=== PATIENT | male | born 1995 | race Caucasian/White ===

== ENCOUNTER 2017-02-03 17:23 | Emergency (ER) | payer BC, OTHER ==
--- NOTE | 2017-02-03 17:26 | UC ---
Eye Complaint HPI - HPI Summary HPI Summary: 21 year old male presents with left eye pain. - History of Current Complaint Stated Complaint: LEFT EYE COMPLAINT Time Seen by Provider: 02/03/17 17:25 - Allergies/Home Medications Allergies/Adverse Reactions: Allergies Allergy/AdvReac Type Severity Reaction Status Date / Time Cefaclor [From Ceclor] Allergy Hives Verified 02/03/17 17:32 Cefuroxime [From Ceftin] Allergy Hives Verified 02/03/17 17:32 bee stings Allergy Swelling Uncoded 02/03/17 17:32 environmental allergy Allergy Congestion Uncoded 02/03/17 17:32 PMH/Surg Hx/FS Hx/Imm Hx - Surgical History Surgical History: Yes Surgery Procedure, Year, and Place: tonsilectomy as child - Social History Substance Use Type: None - Immunization History Most Recent Tetanus Shot: Unknown Review of Systems Constitutional: Negative Skin: Negative Eyes: Eye Redness, Photophobia ENT: Negative Respiratory: Negative Cardiovascular: Negative Gastrointestinal: Negative Genitourinary: Negative Motor: Negative Neurovascular: Negative Musculoskeletal: Negative Neurological: Negative Psychological: Negative All Other Systems Reviewed And Are Negative: Yes Physical Exam Triage Information Reviewed: Yes Eyes: Positive: Conjunctiva Inflamed, Other: - foreign body (dirt) ENT Exam: Normal Dental Exam: Normal Neck exam: Normal Neck: Positive: 1 Respiratory Exam: Normal Cardiovascular Exam: Normal Abdominal Exam: Normal Musculoskeletal Exam: Normal Neurological Exam: Normal Psychological Exam: Normal Skin Exam: Normal Eye Complaint Course/Dx - Differential Dx/Diagnosis Provider Diagnoses: left eye foreign body. conjunctivitis Discharge - Discharge Plan Condition: Stable Disposition: HOME Prescriptions: Tobramycin-Dexamethasone [Tobradex] 1 anthony OP Q6HR #1 bottle Patient Education Materials: Corneal Abrasion (ED), Conjunctivitis (ED) Referrals: Kaleb Leroy MD [Medical Doctor] - If Needed
[2017-02-03 17:32] VITALS: BP 134/69
[2017-02-03] MEDS ORDERED: Tetracaine 0.5% OPTH.SOL 4 ML* 1 DROP BTL ONE (17:36)
[2017-02-03] MEDS ORDERED: BSS OPTH.SOL* BTL ONE (17:36)
[2017-02-03] MEDS ORDERED: Fluorescein Sodium TOPICAL* 1 MG TEST ONE (17:36)
[2017-02-03] MEDS ORDERED: Tetracaine 0.5% OPTH.SOL 4 ML* 1 DROP BTL LEFT EYE ONE (17:39)
[2017-02-03] MEDS ORDERED: Eye Irrigation Solution 30 ML BOTTLE LEFT EYE ONE (17:42)
[2017-02-03] MEDS ORDERED: Fluorescein Sodium TOPICAL* 1 MG TEST OPHTHALMIC ONE (17:42)
== END 2017-02-03 17:58 | disposition home or self-care (01) ==
LOC: UCCORT 17:23
DX: T15.92XA Foreign body on external eye, part unspecified, left eye, initial encounter (principal); H10.9 Unspecified conjunctivitis; X58.XXXA Exposure to other specified factors, initial encounter; Y92.9 Unspecified place or not applicable
CPT/HCPCS: 99202; A9270-GY; G0463